=== PATIENT | male | born 1950 | race Caucasian/White ===

== ENCOUNTER 2017-09-28 07:26 | Emergency (ER) | payer SELFPAY ==
[~2017-09-28] VITALS: Ht 175.3 cm; Wt 89.0 kg
[2017-09-28 08:16] LABS: BASOPHILS % 0.6 % (0.0-2.0); EOSINOPHILS % 0.6 % (0.0-5.0); HEMATOCRIT. 44.8 % (42.0-52.0); HEMOGLOBIN. 15.4 g/dL (14.0-18.0); LYMPHOCYTES % 12.5 % (20.0-50.0); MEAN CORPUSCULAR HEMOGLOBIN 32.3 pg (28.0-32.0); MEAN CORPUSCULAR VOLUME 93.8 fL (80.0-94.0); MEAN PLATELET VOLUME 8.8 fl (7.4-10.4); MONOCYTES % 7.7 % (2.0-8.0); NEUTROPHILS % 78.6 % (40.0-76.0); PLATELET 231 x1000/uL (130-400); RED BLOOD CELL COUNT 4.78 mill/uL (4.7-6.1); RED CELL DISTRIBUTION WIDTH 13.8 % (11.6-14.6)
[2017-09-28 08:28] LABS: CHLORIDE 98 mEq/L (98-107)
[2017-09-28 08:29] LABS: AMMONIA 21 uMol/L (<32)
[2017-09-28 08:37] LABS: ETHANOL BLOOD < 10 mg/dL
[2017-09-28 09:32] LABS: CLARITY URINE CLEAR (CLEAR); COLOR URINE YELLOW (YELLOW); KETONES URINE NEGATIVE (NEGATIVE); LEUKOCYTE ESTERASE URINE NEGATIVE (NEGATIVE); NITRITE URINE NEGATIVE (NEGATIVE); OCCULT BLOOD URINE 1+ (NEGATIVE); PROTEIN URINE NEGATIVE (NEGATIVE); SPECIFIC GRAVITY URINE 1.005 (1.005-1.030); UROBILINOGEN URINE 0.2 E.U./dL (0.2-1.0)
[2017-09-28 09:55] LABS: *AMPHETAMINES SCREEN URINE NEGATIVE (NEGATIVE); *BARBITURATES SCREEN URINE NEGATIVE (NEGATIVE); *BENZODIAZEPINES SCREEN URINE NEGATIVE (NEGATIVE); *COCAINE SCREEN URINE NEGATIVE (NEGATIVE)
[2017-09-28 09:56] LABS: CANNABINOID URINE SCREEN NEGATIVE (NEGATIVE); METHADONE URINE SCREEN NEGATIVE (NEGATIVE); OPIATES URINE SCREEN NEGATIVE (NEGATIVE); PHENCYCLIDINE URINE SCREEN NEGATIVE (NEGATIVE)
[2017-09-28] MEDS ORDERED: LEVETIRACETAM 500MG PREMIX 100 ML IV ONE ×2 (11:00)
[2017-09-28 15:48] VITALS: BP 139/80
== END 2017-09-28 15:49 | disposition short-term general hospital (02) ==
LOC: ER 07:47 → CANBEDREQ 13:37 → ER 15:49
DX: R53.1 Weakness (principal); R42 Dizziness and giddiness; R32 Unspecified urinary incontinence; R20.0 Anesthesia of skin; I10 Essential (primary) hypertension; E78.00 Pure hypercholesterolemia, unspecified; M10.9 Gout, unspecified
CPT/HCPCS: 36415; 70450; 71045; 80053; 80305; 81003; 82140; 83880; 84484; 85025; 93005; 96365; 99285; G0482; J1953; Z7610; A4315